=== PATIENT | female | born 1985 | race Caucasian/White ===

== ENCOUNTER 2016-06-07 | Outpatient (CLI) | payer BC | END 2016-06-07 11:18 | disposition home or self-care (01) | CPT/HCPCS: 59025; 99213 ==

== ENCOUNTER 2016-06-14 20:34 | Observation (INO) | payer BC ==
[2016-06-14] MEDS ORDERED: MORPHINE SULFATE 10 MG/ML SYRINGE IVP STA (21:20)
[2016-06-14] MEDS ORDERED: MORPHINE SULFATE 10 MG/ML SYRINGE IM STA (21:20)
[2016-06-14] MEDS: LACTATED RINGERS 1,000 ML IV SCH (22:08)
[2016-06-14 22:52] VITALS: BP 130/75; PULSE 82; RESP 16; BMI 29.2
[2016-06-15] MEDS ORDERED: diphenhydrAMINE 50 MG/ML 1 ML VIAL IVP STA (02:04)
--- NOTE | 2016-06-15 02:09 | P.HPOB ---
History of Present Illness H&P Date: 06/15/16 Chief Complaint: Uterine contractions 31-year-old presents at 36 weeks and 4 days complaining of contractions. She's been aleida for several days and has had very little sleep the last several days. heart tones are 140-145 with moderate variability and reactive. She is aleida about every 7 minutes. She is not making cervical change and she will not be induced at this stage in her but I will give her some pain medication to get some rest overnight. Review of Systems All systems: negative Constitutional: Denies chills, Denies fever Eyes: denies blurred vision, denies pain Ears, nose, mouth and throat: Denies headache, Denies sore throat Cardiovascular: Denies chest pain, Denies shortness of breath Respiratory: Denies cough Gastrointestinal: Denies abdominal pain, Denies diarrhea, Denies nausea, Denies vomiting Genitourinary: Denies dysuria, Denies hematuria Musculoskeletal: Denies myalgias Integumentary: Denies pruritus, Denies rash Neurological: Denies numbness, Denies weakness Psychiatric: Denies anxiety, Denies depression Endocrine: Denies fatigue, Denies weight change Past Medical History Past Medical History: No Reported History History of Any Multi-Drug Resistant Organisms: None Reported Past Surgical History: No Surgical Hx Reported Additional Past Surgical History / Comment(s): wisdom teeth Past Anesthesia/Blood Transfusion Reactions: No Reported Reaction Past Psychological History: No Psychological Hx Reported Smoking Status: Never smoker Past Alcohol Use History: None Reported Past Drug Use History: None Reported - Past Family History Father Family Medical History: No Reported History Medications and Allergies Home Medications Medication Instructions Recorded Confirmed Type Pnv#67/Iron Ps/FA Cmb#1/Dha 1 cap PO HS 11/20/15 06/14/16 History [Vitafol Ultra Softgel] Allergies Allergy/AdvReac Type Severity Reaction Status Date / Time Sulfa (Sulfonamide Allergy Anaphylaxis Verified 06/11/16 18:20 Antibiotics) promethazine HCl AdvReac Unknown Verified 06/14/16 20:51 [From Phenergan] Exam Osteopathic Statement: *. No significant issues noted on an osteopathic structural exam other than those noted in the History and Physical/Consult. - Vital Signs Vital signs: Vital Signs Pulse Resp BP Pulse Ox 06/14/16 21:58 82 16 130/75 97 Intake and Output 06/14/16 06/14/16 06/15/16 14:59 22:59 06:59 Other: # Voids 2 Weight 82.1 kg Patient Weight 06/15/16 06:59 Weight 82.1 kg Heart: Regular rate and rhythm Lungs: Clear to auscultation bilaterally Abdomen: Soft, nontender Extremities: Negative Homans sign Assessment and Plan (1) Uterine contractions during Status: Acute Plan: 1. NST 2. Morphine rest 3. She doesn't make any cervical change she'll be discharged home in the morning
[2016-06-15] MEDS: LACTATED RINGERS 1,000 ML IV SCH (02:19)
== END 2016-06-15 11:05 | disposition home or self-care (01) ==
LOC: FBPOP 20:34 → 4FBP 21:15
PROVIDERS: ADMIT Obstetrics & Gynecology; ATTEND Obstetrics & Gynecology
DX: O60.03 Preterm labor without delivery, third trimester (principal); Z3A.36 36 weeks gestation of pregnancy; Z88.2 Allergy status to sulfonamides
CPT/HCPCS: 59025; 99213; G0378 ×2; J1200; J2270; 96374; 96375

== ENCOUNTER 2016-06-28 19:28 | Inpatient (IN) | payer BC, OTHER ==
[2016-06-28] MEDS ORDERED: TERBUTALINE 1 MG/ML VIAL SQ PRN (20:07)
[2016-06-28] MEDS ORDERED: OXYTOCIN 10 UNIT/ML 1 ML VIAL IM PRN (20:07)
[2016-06-28] MEDS ORDERED: CARBOPROST TROMETHAMINE 250 MCG/ML 1 ML AMP IM PRN (20:07)
[2016-06-28] MEDS ORDERED: METHYLERGONOVINE 0.2 MG/ML 1 ML AMP IM PRN (20:07)
[2016-06-28] MEDS ORDERED: LIDOCAINE 1% (PF) 10 MG/ML (30 ML SDV) SQ PRN (20:07)
[2016-06-28] MEDS: LACTATED RINGERS 1,000 ML IV SCH ×2 (20:17→21:26)
[2016-06-28 20:21] LABS: Basophils % (A) 0 %; CH 30.3; CHCM 34.2; Eosinophils # (A) 0.1 k/uL (0-0.7); Eosinophils % (A) 1 %; HCT 39.4 % (34.0-46.0); HDW 3.13; Luc # (Auto) 0.26; Luc % (Auto) 3; Lymphocytes # (A) 1.3 k/uL (1.0-4.8); Lymphocytes % (A) 14 %; MCH 29.2 pg (25.0-35.0); MCHC 32.9 g/dL (31.0-37.0); Mean Platelet Volume 8.3; Monocytes # (A) 0.6 k/uL (0-1.0); Monocytes % (A) 7 %; Neutrophils # (A) 6.8 k/uL (1.3-7.7); Neutrophils % (A) 75 %; RBC 4.43 m/uL (3.80-5.40); RDW 14.2 % (11.5-15.5); WBC 9.1 k/uL (3.8-10.6); WBC (Perox) 9.77
--- NOTE | 2016-06-28 20:32 | P.HPOB ---
History of Present Illness H&P Date: 06/28/16 Chief Complaint: Labor 31 year old presents at 38 weeks 5 days in labor. She is aleida every 3 minutes and her cervix is 4-5/80/-2. heart tones 140-145 with moderate variability and reactive. Review of Systems All systems: negative Constitutional: Denies chills, Denies fever Eyes: denies blurred vision, denies pain Ears, nose, mouth and throat: Denies headache, Denies sore throat Cardiovascular: Denies chest pain, Denies shortness of breath Respiratory: Denies cough Gastrointestinal: Denies abdominal pain, Denies diarrhea, Denies nausea, Denies vomiting Genitourinary: Denies dysuria, Denies hematuria Musculoskeletal: Denies myalgias Integumentary: Denies pruritus, Denies rash Neurological: Denies numbness, Denies weakness Psychiatric: Denies anxiety, Denies depression Endocrine: Denies fatigue, Denies weight change Past Medical History Past Medical History: No Reported History Additional Past Medical History / Comment(s): OB history: she has had 2 previous vaginal deliveries and this is her third . She has had care with al since the first trimester. O+, abs neg, Rub Imm, RPR Nr, Hep B neg, HIV NR. History of Any Multi-Drug Resistant Organisms: None Reported Past Surgical History: No Surgical Hx Reported Additional Past Surgical History / Comment(s): wisdom teeth Past Anesthesia/Blood Transfusion Reactions: No Reported Reaction Past Psychological History: No Psychological Hx Reported Smoking Status: Never smoker Past Alcohol Use History: None Reported Past Drug Use History: None Reported - Past Family History Father Family Medical History: No Reported History Medications and Allergies Home Medications Medication Instructions Recorded Confirmed Type Pnv#67/Iron Ps/FA Cmb#1/Dha 1 cap PO HS 11/20/15 06/28/16 History [Vitafol Ultra Softgel] Allergies Allergy/AdvReac Type Severity Reaction Status Date / Time morphine Allergy Itching Verified 06/28/16 20:06 Sulfa (Sulfonamide Allergy Anaphylaxis Verified 06/28/16 20:06 Antibiotics) promethazine HCl AdvReac Unknown Verified 06/28/16 20:06 [From Phenergan] Exam Osteopathic Statement: *. No significant issues noted on an osteopathic structural exam other than those noted in the History and Physical/Consult. - Vital Signs Vital signs: Intake and Output 06/28/16 06/28/16 06/28/16 06:59 14:59 22:59 Other: Weight 81.647 kg Patient Weight 06/29/16 06:59 Weight 81.647 kg Heart: Regular rate and rhythm Lungs: Clear to auscultation bilaterally Abdomen: Soft, nontender Extremities: Negative Homans sign Results Result Diagrams: 06/28/16 20:10 Assessment and Plan (1) Normal labor Status: Acute Plan: 1. Admit to family place 2. Expectant management 3. Anticipate normal vaginal delivery
[2016-06-28] MEDS ORDERED: SODIUM CHLORIDE 0.9% 100 ML BAG ONE (20:53)
[2016-06-28] MEDS ORDERED: fentaNYL (PF) 50 MCG/ML 5 ML AMP ONE (20:53)
[2016-06-28] MEDS ORDERED: BUPIVACAINE (PF) 0.25% 30 ML VIAL ONE (20:53)
[2016-06-28 21:18] VITALS: BMI 29.0
[2016-06-28] MEDS ORDERED: diphenhydrAMINE 25 MG CAP PO PRN (23:33)
[2016-06-28] MEDS ORDERED: HYDROCORTISONE 2.5% RECTAL CREAM 30 GM TUBE RECTAL PRN (23:33)
[2016-06-28] MEDS ORDERED: ZOLPIDEM 5 MG TAB PO PRN (23:33)
[2016-06-28] MEDS ORDERED: LANOLIN CREAM 5 GM TUBE TOPICAL PRN (23:33)
[2016-06-28] MEDS ORDERED: SIMETHICONE 80 MG CHEWABLE PO PRN (23:33)
[2016-06-28] MEDS ORDERED: WITCH HAZEL 1 EACH MED..PAD TOPICAL PRN (23:33)
[2016-06-28] MEDS ORDERED: BENZOCAINE/MENTHOL SPRAY 1 GM/SPRAY AEROSOL TOPICAL PRN (23:33)
[2016-06-28] MEDS ORDERED: Acetaminophen-Codeine 300-30mg TAB PO PRN ×2 (23:33)
[2016-06-28] MEDS ORDERED: ACETAMINOPHEN TAB 325 MG TAB PO PRN (23:33)
[2016-06-28] MEDS ORDERED: diphenhydrAMINE 50 MG/ML 1 ML VIAL IVP PRN ×2 (23:33)
[2016-06-28] MEDS ORDERED: diphenhydrAMINE 50 MG CAP PO PRN (23:33)
--- NOTE | 2016-06-28 23:37 | P.PROBDLV ---
Vaginal Delivery Note - . Vaginal Delivery Note: 31-year-old presents at 38 weeks and 5 days and labor. Her cervix is 4-5 cm dilated, 70% effaced, -2 station. She is aleida every 3-4 minutes. heart tones 140-145 with moderate variability and reactive. Amniotomy was performed at 2022 and clear fluid noted. She did get an epidural for pain control. Her cervix was completely dilated at 2317 she pushed and delivered a viable female infant over intact perineum under epidural anesthesia at 2323. Head delivered OA, nuchal cord 1 easily reduced, anterior shoulder which was the left shoulder, delivered gentle downward traction followed by posterior shoulder and rest of body. Nose mouth bulb suctioned, cord clamped and cut, infant placed on mother's abdomen. Apgars 8, 9, weight pending. Placenta delivered spontaneously intact with three-vessel cord at 2326. Vagina, cervix, perineum were inspected. First-degree midline laceration was repaired with 3-0 Vicryl. Estimated blood loss 150 mL. Mother and baby in stable condition.
[2016-06-28] MEDS: OXYTOCIN 30 UNITS/500 ML NS 30 UNIT in SALINE 1 500ML.BAG IV SCH (23:41)
[2016-06-29] MEDS: IBUPROFEN 600 MG TAB PO PRN ×3 (00:04→15:01)
[2016-06-29] MEDS: OXYTOCIN 30 UNITS/500 ML NS 30 UNIT in SALINE 1 500ML.BAG IV SCH (04:21)
[2016-06-29] MEDS: DOCUSATE 100 MG CAP PO SCH (09:47)
[2016-06-30] MEDS: IBUPROFEN 600 MG TAB PO PRN ×2 (00:05→07:51)
[2016-06-30] MEDS: DOCUSATE 100 MG CAP PO SCH (07:52)
[2016-06-30 08:44] VITALS: BP 130/78; PULSE 85; RESP 20; TEMP 97
--- NOTE | 2016-06-30 08:48 | P.PNOBGVD ---
Subjective - Subjective Principal diagnosis: S/P NVD PPD #1 Interval history: Patient seen and examined. Denies nausea, vomiting, chest pain, shortness of breath or calf pain. Patient reports: Reports appetite normal, Reports voiding normally, Reports pain well controlled, Reports ambulating normally : doing well Objective - Latest Vital Signs Latest vital signs: Vital Signs Temp Pulse Resp BP 06/30/16 08:00 97.0 F L 85 20 130/78 06/30/16 00:00 96.8 F L 90 12 117/65 06/29/16 16:00 97.8 F 94 14 121/74 Intake and Output 06/29/16 06/30/16 06/30/16 22:59 06:59 14:59 Other: Voiding Method Toilet - Exam Lungs: bilateral: normal Chest: Normal S1, Normal S2 Extremities: Present: normal Abdomen: Present: normal appearance, soft Uterus: Present: normal, firm Assessment and Plan (1) Normal labor Narrative/Plan: 1. Continue normal care Current Visit: Yes Status: Resolved Code(s): O80 - ENCOUNTER FOR FULL-TERM UNCOMPLICATED DELIVERY; Z37.9 - OUTCOME OF DELIVERY, UNSPECIFIED SNOMED Code(s ): 82020384
--- NOTE | 2016-06-30 08:49 | P.DS ---
Providers Date of admission: 06/28/16 19:57 Expected date of discharge: 06/30/16 Attending physician: Olive Jara Primary care physician: Stated None - Discharge Diagnosis(es) (1) Normal labor Current Visit: Yes Status: Resolved Hospital Course: Patient presented in labor. She underwent normal vaginal delivery. Her course and 8. She'll be discharged home day #2 in stable condition to follow-up with me in 6 weeks. Plan - Discharge Summary New Discharge Prescriptions: Acetaminophen-Codeine 300-30mg [Tylenol w/codeine #3] 2 each PO Q4HR PRN #30 tab PRN Reason: Moderate To Severe Pain Ibuprofen [Motrin] 600 mg PO Q6HR PRN #30 tab PRN Reason: Mild Pain Or Fever >= 100.5 Discharge Medication List Pnv#67/Iron Ps/FA Cmb#1/Dha [Vitafol Ultra Softgel] 1 cap PO HS 11/20/15 [ History] Acetaminophen-Codeine 300-30mg [Tylenol w/codeine #3] 2 each PO Q4HR PRN #30 tab 06/30/16 [Rx] Ibuprofen [Motrin] 600 mg PO Q6HR PRN #30 tab 06/30/16 [Rx] Follow up Appointment(s)/Referral(s): Olive Jara DO [Doctor of Osteopathic Medicine] - 6 Weeks
== END 2016-06-30 11:20 | disposition home or self-care (01) | DRG 775 ==
LOC: FBPOP 19:28 → 4FBP 19:57
PROVIDERS: ADMIT Obstetrics & Gynecology; ATTEND Obstetrics & Gynecology
PROC: 10E0XZZ Delivery of Products of Conception, External Approach (ICD-10-PCS; principal; 2016-06-28)
PROC: 0HQ9XZZ Repair Perineum Skin, External Approach (ICD-10-PCS; 2016-06-28)
PROC: 10907ZC Drainage of Amniotic Fluid, Therapeutic from Products of Conception, Via Natural or Artificial Opening (ICD-10-PCS; 2016-06-28)
PROC: 00HU33Z Insertion of Infusion Device into Spinal Canal, Percutaneous Approach (ICD-10-PCS; 2016-06-28)
DX: O69.81X0 Labor and delivery complicated by cord around neck, without compression, not applicable or unspecified (principal); O70.0 First degree perineal laceration during delivery; Z37.0 Single live birth; Z3A.38 38 weeks gestation of pregnancy; Z88.5 Allergy status to narcotic agent; Z88.2 Allergy status to sulfonamides; Z88.8 Allergy status to other drugs, medicaments and biological substances
CPT/HCPCS: 85025; 88307

== ENCOUNTER 2016-12-15 14:37 | Emergency (ER) | payer BC ==
[2016-12-15] MEDS ORDERED: SODIUM CHLORIDE 0.9% 500 ML IV STA (15:14)
--- NOTE | 2016-12-15 15:20 | ED ---
Abdominal Pain HPI - General Chief Complaint: Abdominal Pain Stated Complaint: abdominal pain Time Seen by Provider: 12/15/16 15:08 Source: patient, RN notes reviewed Mode of arrival: ambulatory Limitations: no limitations - History of Present Illness Initial Comments: This a 31-year-old female presents emergency Department chief complaint lower abdominal pain starting last 24 hours. She states that she felt some urgency to urinate no real dysuria. Patient went to [facility] earlier today they told her urine was fine. She states that she felt maybe she said some gas discomfort. She went home attempt blood work and pain worsen. She was advised to come emergency Department for evaluation. Patient states she had vaginal delivery 6 months ago and states that her had a vasectomy and should not be a chance at this time though she has not had a period in 2 years. Patient denies any fever, chills, back pain or any flank pain. She states on Tuesday she did have some nausea vomiting diarrhea that all resolved. Patient states she did take some Tylenol prior arrival in relief of her symptoms that she is currently breast-feeding does not want any medications. - Related Data Home Medications Medication Instructions Recorded Confirmed Pnv 67/Iron Ps/Folate No.1/Dha 1 cap PO HS 11/20/15 12/15/16 [Vitafol Ultra Softgel] Acetaminophen Tab [Tylenol Tab] 1,000 mg PO Q6HR PRN 12/15/16 12/15/16 Previous Rx's Medication Instructions Recorded Cephalexin [Keflex] 500 mg PO Q6HR #20 cap 12/15/16 Allergies Allergy/AdvReac Type Severity Reaction Status Date / Time morphine Allergy Itching Verified 12/15/16 15:33 Sulfa (Sulfonamide Allergy Anaphylaxis Verified 12/15/16 15:33 Antibiotics) promethazine HCl AdvReac Unknown Verified 12/15/16 15:33 [From Phenergan] Review of Systems ROS Statement: Those systems with pertinent positive or pertinent negative responses have been documented in the HPI. ROS Other: All systems not noted in ROS Statement are negative. Past Medical History Past Medical History: No Reported History Additional Past Medical History / Comment(s): OB history: she has had 2 previous vaginal deliveries and this is her third . She has had care with me since the first trimester. O+, abs neg, Rub Imm, RPR Nr, Hep B neg, HIV NR. History of Any Multi-Drug Resistant Organisms: None Reported Past Surgical History: No Surgical Hx Reported Additional Past Surgical History / Comment(s): wisdom teeth Past Anesthesia/Blood Transfusion Reactions: No Reported Reaction Past Psychological History: No Psychological Hx Reported Smoking Status: Never smoker Past Alcohol Use History: None Reported Past Drug Use History: None Reported - Past Family History Father Family Medical History: No Reported History General Exam Limitations: no limitations General appearance: alert, in no apparent distress Head exam: Present: atraumatic, normocephalic, normal inspection Respiratory exam: Present: normal lung sounds bilaterally. Absent: respiratory distress, wheezes, rales, rhonchi, stridor Cardiovascular Exam: Present: regular rate, normal rhythm, normal heart sounds. Absent: systolic murmur, diastolic murmur, rubs, gallop, clicks GI/Abdominal exam: Present: soft, tenderness (Mild to monitor lower abdominal diffuse), normal bowel sounds. Absent: distended, guarding, rebound, rigid Back exam: Absent: CVA tenderness (R), CVA tenderness (L) Skin exam: Present: warm, dry, intact, normal color. Absent: rash Course Vital Signs 12/15/16 12/15/16 14:49 16:38 Temperature 98.1 F 97.8 F Pulse Rate 81 71 Respiratory 18 16 Rate Blood Pressure 116/69 114/71 O2 Sat by Pulse 100 98 Oximetry Medical Decision Making - Medical Decision Making 31-year-old female presented emergency department for lower abdominal pain. Patient does have 17 white cells in her urine. There is few squamous cells so she patient is symptomatic will be treated for UTI. Patient does have moderate amount of free fluid in cul-de-sac cycle related to ovarian cyst rupture. Patient will be discharged return parameters were discussed. - Lab Data Result diagrams: 12/15/16 15:46 12/15/16 15:46 Lab Results 12/15/16 12/15/16 12/15/16 Range/Units 15:46 15:46 15:46 WBC 7.1 (3.8-10.6) k/uL RBC 4.42 (3.80-5.40) m/uL Hgb 13.5 (11.4-16.0) gm/dL Hct 38.8 (34.0-46.0) % MCV 87.9 (80.0-100.0) fL MCH 30.5 (25.0-35.0) pg MCHC 34.7 (31.0-37.0) g/dL RDW 13.0 (11.5-15.5) % Plt Count 207 (150-450) k/uL Neutrophils % 56 % Lymphocytes % 34 % Monocytes % 7 % Eosinophils % 1 % Basophils % 1 % Neutrophils # 3.9 (1.3-7.7) k/uL Lymphocytes # 2.4 (1.0-4.8) k/uL Monocytes # 0.5 (0-1.0) k/uL Eosinophils # 0.1 (0-0.7) k/uL Basophils # 0.0 (0-0.2) k/uL Sodium 141 (137-145) mmol/L Potassium 5.1 (3.5-5.1) mmol/L Chloride 103 (98-107) mmol/L Carbon Dioxide 26 (22-30) mmol/L Anion Gap 12 mmol/L BUN 12 (7-17) mg/dL Creatinine 0.76 (0.52-1.04) mg/dL Est GFR (MDRD) Af Amer >60 (>60 ml/min/1.73 sqM) Est GFR (MDRD) Non-Af >60 (>60 ml/min/1.73 sqM) Glucose 86 (74-99) mg/dL Calcium 9.4 (8.4-10.2) mg/dL Total Bilirubin 0.6 (0.2-1.3) mg/dL AST 22 (14-36) U/L ALT 27 (9-52) U/L Alkaline Phosphatase 101 (38-126) U/L Total Protein 7.2 (6.3-8.2) g/dL Albumin 4.3 (3.5-5.0) g/dL Amylase 70 (30-110) U/L Lipase 136 (23-300) U/L Urine Color Yellow Urine Appearance Clear (Clear) Urine pH 5.5 (5.0-8.0) Ur Specific [place] 1.024 (1.001-1.035) Urine Protein Negative (Negative) Urine Glucose (UA) Negative (Negative) Urine Ketones Negative (Negative) Urine Blood Negative (Negative) Urine Nitrite Negative (Negative) Urine Bilirubin Negative (Negative) Urine Urobilinogen <2.0 (<2.0) mg/dL Ur Leukocyte Esterase Small H (Negative) Urine RBC 2 (0-5) /hpf Urine WBC 17 H (0-5) /hpf Ur Squamous Epith Cells 9 H (0-4) /hpf Amorphous Sediment Rare H (None) /hpf Urine Bacteria Occasional H (None) /hpf Urine Mucus Few H (None) /hpf Disposition Clinical Impression: UTI (urinary tract infection), Ruptured ovarian cyst Disposition: HOME SELF-CARE Condition: Stable Instructions: Urinary Tract Infection in Women (ED) Additional Instructions: Please return to the Emergency Department if symptoms worsen or any other concerns. Prescriptions: Cephalexin [Keflex] 500 mg PO Q6HR #20 cap Referrals: Mary Irwin MD [Primary Care Provider] - 1-2 days Time of Disposition: 17:02
[2016-12-15 16:13] LABS: Basophils % (A) 1 %; CH 31.1; CHCM 35.6; Eosinophils # (A) 0.1 k/uL (0-0.7); Eosinophils % (A) 1 %; HCT 38.8 % (34.0-46.0); HDW 2.83; HGB 13.5 gm/dL (11.4-16.0); Luc # (Auto) 0.13; Luc % (Auto) 2; Lymphocytes # (A) 2.4 k/uL (1.0-4.8); Lymphocytes % (A) 34 %; MCH 30.5 pg (25.0-35.0); MCHC 34.7 g/dL (31.0-37.0); MCV 87.9 fL (80.0-100.0); Mean Platelet Volume 9.1; Monocytes # (A) 0.5 k/uL (0-1.0); Monocytes % (A) 7 %; Neutrophils # (A) 3.9 k/uL (1.3-7.7); Neutrophils % (A) 56 %; RBC 4.42 m/uL (3.80-5.40); WBC 7.1 k/uL (3.8-10.6); WBC (Perox) 7.62
[2016-12-15 16:26] LABS: Amorphous Sediment,Urine Rare /hpf; Appearance,Urine Clear (Clear); Bacteria,Urine Occasional /hpf; Bilirubin,Urine Negative (Negative); Glucose,Urine (UA) Negative (Negative); Ketones,Urine Negative (Negative); Leukocyte Esterase,Urine Small (Negative); Mucus,Urine Few /hpf; Nitrite,Urine Negative (Negative); PH, Urine 5.5 (5.0-8.0); Particle Count 8978; Protein,Urine Negative (Negative); RBC,Urine 2 /hpf (0-5); Specific Gravity,Urine 1.024 (1.001-1.035); Squamous Epithelial Cell,Urine 9 /hpf (0-4); UA Billing (MACRO vs. MICRO) MICRO; Urobilinogen,Urine <2.0 mg/dL (<2.0); WBC,Urine 17 /hpf (0-5)
[2016-12-15 16:28] LABS: AST 22 U/L (14-36); Alkaline Phosphatase 101 U/L (38-126); Amylase 70 U/L (30-110); Blood Urea Nitrogen 12 mg/dL (7-17); Calcium 9.4 mg/dL (8.4-10.2); Chloride 103 mmol/L (98-107); Glucose 86 mg/dL (74-99); Non-African American GFR(MDRD) >60 (>60 ml/min/1.73 sqM); Potassium 5.1 mmol/L (3.5-5.1); Sodium 141 mmol/L (137-145); Total Bilirubin 0.6 mg/dL (0.2-1.3); Total Protein 7.2 g/dL (6.3-8.2)
[2016-12-15 16:33] LABS: ALT 27 U/L (9-52); Anion Gap 12 mmol/L; Carbon Dioxide 26 mmol/L (22-30)
--- NOTE | 2016-12-15 16:37 | US ---
EXAMINATION TYPE: US transvaginal DATE OF EXAM: 12/15/2016 COMPARISON: NONE CLINICAL HISTORY: Pain. TECHNIQUE: Transvaginal (TV) and Transabdominal (TA) Date of LMP: Patient 6 months post , , unknown LMP EXAM MEASUREMENTS: Uterus: 6.7 x 3.0 x 4.4 cm Endometrial Stripe: 0.2 cm Right Ovary: 1.9 x 1.5 x 1.2 cm Left Ovary: 2.0 x 1.8 x 1.6 cm 1. Uterus: Anteverted wnl 2. Endometrium: wnl 3. Right Ovary: wnl 4. Left Ovary: wnl Spectral, color and waveform doppler imaging shows good arterial and venous flow within the ovaries ; there is no evidence for ovarian torsion. 5. Bilateral Adnexa: wnl 6. Posterior cul-de-sac: area of free fluid measuring 55. x 3.3 x 4.0 There is moderate free fluid within the cul-de-sac. IMPRESSION: MODERATE FREE FLUID WITHOUT OTHER DEFINITE ABNORMALITY.
[2016-12-15 16:40] VITALS: BP 114/71; PULSE 71; RESP 16; TEMP 97.8
== END 2016-12-15 17:16 | disposition home or self-care (01) ==
LOC: EC 14:37
DX: N39.0 Urinary tract infection, site not specified (principal); N83.209 Unspecified ovarian cyst, unspecified side; Z79.899 Other long term (current) drug therapy; Z88.5 Allergy status to narcotic agent; Z88.2 Allergy status to sulfonamides; Z88.8 Allergy status to other drugs, medicaments and biological substances
CPT/HCPCS: 36415; 76830; 80053; 81001; 82150; 83690; 85025; 99284

== ENCOUNTER → 2016-12-23 | Outpatient (CLI) | payer BC ==
[2016-12-23 09:38] LABS: Basophils % (A) 0 %; CH 30.3; CHCM 34.8; Eosinophils # (A) 0.1 k/uL (0-0.7); Eosinophils % (A) 2 %; HCT 42.3 % (34.0-46.0); HDW 2.95; HGB 14.7 gm/dL (11.4-16.0); Luc # (Auto) 0.11; Luc % (Auto) 2; Lymphocytes # (A) 2.1 k/uL (1.0-4.8); Lymphocytes % (A) 31 %; MCH 30.3 pg (25.0-35.0); MCHC 34.7 g/dL (31.0-37.0); MCV 87.5 fL (80.0-100.0); Monocytes # (A) 0.3 k/uL (0-1.0); Monocytes % (A) 4 %; Neutrophils % (A) 61 %; RBC 4.84 m/uL (3.80-5.40); RDW 12.2 % (11.5-15.5); WBC 6.6 k/uL (3.8-10.6)
[2016-12-23 09:54] LABS: ALT 30 U/L (9-52); AST 21 U/L (14-36); Alkaline Phosphatase 117 U/L (38-126); Anion Gap 12 mmol/L; Blood Urea Nitrogen 15 mg/dL (7-17); Calcium 9.8 mg/dL (8.4-10.2); Carbon Dioxide 27 mmol/L (22-30); Chloride 105 mmol/L (98-107); Cholesterol 159 mg/dL (<200); Glucose 86 mg/dL (74-99); HDL Cholesterol 56 mg/dL (40-60); Non-African American GFR(MDRD) >60 (>60 ml/min/1.73 sqM); Potassium 4.4 mmol/L (3.5-5.1); Sodium 144 mmol/L (137-145); Total Bilirubin 0.7 mg/dL (0.2-1.3); Total Protein 7.9 g/dL (6.3-8.2); Triglycerides 90 mg/dL (<150)
== END | disposition home or self-care (01) ==
LOC: LABWHC1 09:01
PROVIDERS: ATTEND Family Medicine
DX: Z00.00 Encounter for general adult medical examination without abnormal findings (principal)
CPT/HCPCS: 36415; 80053; 80061; 84443; 85025

== ENCOUNTER 2019-08-16 16:06 | Emergency (ER) | payer BC ==
[2019-08-16 16:10] VITALS: BP 137/90; PULSE 88; RESP 18; TEMP 98.7
--- NOTE | 2019-08-16 17:19 | XR ---
EXAMINATION TYPE: XR chest 2V DATE OF EXAM: 08/16/2019 COMPARISON: 01/10/2016 HISTORY: Chest tightness TECHNIQUE: 2 views FINDINGS: Heart and mediastinum are normal. Lungs are clear. Diaphragm is normal. Bony thorax appears normal. IMPRESSION: Normal chest. No change.
--- NOTE | 2019-08-16 17:27 | ED ---
General Adult HPI - General Chief complaint: Upper Respiratory Infection Stated complaint: Fever,cough, SOB Time Seen by Provider: 08/16/19 16:27 Source: patient Mode of arrival: ambulatory Limitations: no limitations - History of Present Illness Initial comments: Patient is a 34-year-old female presenting to emergency Department with chief complaint of cough. Patient states she developed symptoms about 4 days ago with a productive cough. Patient does report occasional sore throat after coughing fits. Denies any rhinorrhea or otalgia. States she does have shortness of breath and dyspnea on exertion. Patient states she has chest tightness but not necessarily pain especially after coughing fits. Patient states she has general body aches with one episode of diarrhea today. Does report chills but denies any fevers. Denies any nausea or vomiting abdominal pain or back pain. Patient denies history of asthma or smoking. Denies hypertension, dyslipidemia, early cardiac related . No previous cardiac history. Patient does report taking [id number] analgesics with some improvement of symptoms. Denies any recent travels or direct exposure to any known Covid patient. - Related Data Home Medications Medication Instructions Recorded Confirmed Pnv 67/Iron Ps/Folate No.1/Dha 1 cap PO HS 11/20/15 12/15/16 [Vitafol Ultra Softgel] Acetaminophen Tab [Tylenol Tab] 1,000 mg PO Q6HR PRN 12/15/16 12/15/16 Previous Rx's Medication Instructions Recorded Cephalexin [Keflex] 500 mg PO Q6HR #20 cap 12/15/16 Albuterol Inhaler [Ventolin Hfa 1 - 2 puff INHALATION RT-Q6H PRN 08/16/19 Inhaler] #1 inhaler Allergies Allergy/AdvReac Type Severity Reaction Status Date / Time morphine Allergy Itching Verified 08/16/19 16:11 Penicillins Allergy Rash/Hives Verified 08/16/19 16:11 Sulfa (Sulfonamide Allergy Anaphylaxis Verified 08/16/19 16:11 Antibiotics) promethazine HCl AdvReac Unknown Verified 08/16/19 16:11 [From Phenergan] Review of Systems ROS Statement: Those systems with pertinent positive or pertinent negative responses have been documented in the HPI. ROS Other: All systems not noted in ROS Statement are negative. Past Medical History Past Medical History: No Reported History Additional Past Medical History / Comment(s): OB history: she has had 2 previous vaginal deliveries and this is her third . She has had care with me since the first trimester. O+, abs neg, Rub Imm, RPR Nr, Hep B neg, HIV NR. History of Any Multi-Drug Resistant Organisms: None Reported Past Surgical History: No Surgical Hx Reported Additional Past Surgical History / Comment(s): wisdom teeth Past Anesthesia/Blood Transfusion Reactions: No Reported Reaction Past Psychological History: No Psychological Hx Reported Smoking Status: Never smoker Past Alcohol Use History: None Reported Past Drug Use History: None Reported - Past Family History Father Family Medical History: No Reported History General Exam Limitations: no limitations General appearance: alert, in no apparent distress Head exam: Present: atraumatic, normocephalic, normal inspection Eye exam: Present: normal appearance, PERRL, EOMI Pupils: Present: normal accommodation ENT exam: Present: normal exam, normal oropharynx, mucous membranes moist, TM's normal bilaterally, normal external ear exam Neck exam: Present: normal inspection, full ROM Respiratory exam: Present: normal lung sounds bilaterally, chest wall tenderness (Reproducible midsternal chest tenderness). Absent: respiratory distress, wheezes Cardiovascular Exam: Present: regular rate, normal rhythm, normal heart sounds Extremities exam: Present: normal inspection, full ROM Back exam: Present: normal inspection, full ROM Neurological exam: Present: alert, oriented X3 Psychiatric exam: Present: normal affect, normal mood Skin exam: Present: warm, dry, intact, normal color Course Vital Signs 08/16/19 08/16/19 16:07 17:50 Temperature 98.7 F Pulse Rate 88 Respiratory 18 18 Rate Blood Pressure 137/90 O2 Sat by Pulse 98 Oximetry EKG Findings - EKG Comments: EKG Findings:: normal sinus rhythm, no ST changes. Ventricular rate 73, MI 1:30, QRS 82, QTC 419. Medical Decision Making - Medical Decision Making patient is a 4-year-old male presenting to emergency Department with chief complaint of cough and shortness of breath. On examination patient is not in any respiratory distress. No abnormal respiratory sounds appreciated. Patient does have reproducible chest pain in the midsternal region with palpation. Chest x-ray is negative for acute processes. EKG shows normal sinus rhythm with no ST changes. Patient does appear to have body aches along with a cough but normal vitals in the ED. I suspect the patient has influenza, however patient is currently out of the 48 hour range from onset of symptoms in order to prescribe Tamiflu treatment. Patient advised to continue between Tylenol and Mo darryl. She was advised to use an albuterol inhaler as needed for shortness of breath. Return parameters were thoroughly discussed with patient is understanding and agreeable. Case discussed with physician. Disposition Clinical Impression: Cough, Acute bronchitis Disposition: HOME SELF-CARE Condition: Stable Instructions (If sedation given, give patient instructions): Influenza (DC), Acute Bronchitis (ED) Additional Instructions: Continue alternating between Tylenol and Motrin. Make sure to drink lots of fluids. Return to emergency department if symptoms worsen. Prescriptions: Albuterol Inhaler [Ventolin Hfa Inhaler] 1 - 2 puff INHALATION RT-Q6H PRN #1 inhaler PRN Reason: Shortness Of Breath Is patient prescribed a controlled substance at d/c from ED?: No Referrals: Mary Irwin MD [Primary Care Provider] - 1-2 days Time of Disposition: 17:54
== END 2019-08-16 18:10 | disposition home or self-care (01) ==
LOC: EC 16:06
DX: J20.9 Acute bronchitis, unspecified (principal); Z88.0 Allergy status to penicillin; Z88.2 Allergy status to sulfonamides; Z88.5 Allergy status to narcotic agent; Z88.8 Allergy status to other drugs, medicaments and biological substances; R19.7 Diarrhea, unspecified
CPT/HCPCS: 71046; 93005; 99285

== ENCOUNTER → 2020-07-14 | Outpatient (CLI) | payer BC ==
--- NOTE | 2020-07-14 14:37 | MM ---
Reason for exam: screening (asymptomatic). Baseline mammogram. History: Family history of breast cancer in maternal cousin at age 27 and breast cancer in maternal aunt at age 45. Taking hormonal contraceptives beginning at age 15. Physical Findings: Nurse did not find any significant physical abnormalities on exam. MG 3D Screening Mammo W/Cad Bilateral CC and MLO view(s) were taken. The breast tissue is extremely dense which could obscure a lesion on mammography. Finding: There are typically benign fine, diffuse/scattered calcifications in both breasts. There is no discrete abnormality. These results were verbally communicated with the patient and result sheet given to the patient on 07/14/20. ASSESSMENT: Benign, BI-RAD 2 RECOMMENDATION: Routine screening mammogram of both breasts at age 39.
--- NOTE | 2020-07-14 16:05 | BD ---
EXAMINATION TYPE: Axial Bone Density DATE OF EXAM: 07/14/2020 COMPARISON: NONE CLINICAL HISTORY: Height: 65.5 IN Weight: 160 LBS RISK FACTORS HISTORY OF: History of Wrist Fracture: YES LEFT When: AGE 21 Family History of Osteoporosis: YES GRANDMOTHER (M)(F) Active: YES Take estrogen and/or progesterone medications: YES How long: CONTROL OFF AND ON FOR 13 YEARS MEDICATIONS: Additional Medications: CALCIUM, VIT D, MULTI VIT, CONTROL, EXAM MEASUREMENTS: Bone mineral densitometry was performed using the [employer] System. Bone mineral density as measured about the Lumbar spine is: ----- L1-L4(G/cm2): 1.114 T Score Values are as follows: ----- L2: -0.6 ----- L3: -0.5 ----- L4: -0.7 ----- L1-L4: -0.5 Bone mineral density BASELINE Bone mineral density about the R hip (g/cm2): 0.871 Bone mineral density about the L hip (g/cm2): 0.894 T Score values are as follows: -----R Neck: -1.2 -----L Neck: -1.0 -----R Total: -1.1 -----L Total: -0.9 Bone mineral density BASELINE IMPRESSION: Osteopenia (T Score between -2.5 and -1). There is slightly increased risk of fracture and the patient may be considered for treatment. Re-Screen 2-5 years. NOTE: T-SCORE=SD OF THE YOUNG ADULT MEAN.
== END | disposition home or self-care (01) ==
LOC: RADMAMWWP 13:21
PROVIDERS: ATTEND Obstetrics & Gynecology
DX: Z12.31 Encounter for screening mammogram for malignant neoplasm of breast (principal); M85.80 Other specified disorders of bone density and structure, unspecified site
CPT/HCPCS: 77063; 77067; 77080

== ENCOUNTER → 2021-10-05 | Outpatient (CLI) | payer BC ==
--- NOTE | 2021-10-16 16:06 | EM ---
EVENT MONITOR DATE OF STUDY: 10/05/2021. INDICATION: Cardiac arrhythmia. The patient was monitored for 7 days. The baseline rhythm appeared to be sinus mechanism. The patient did have multiple episodes of paroxysmal atrial tachycardia noted. Otherwise there was no significant sinus pause or sinus arrest. No evidence of any advanced AV block seen. CONCLUSION: 1. This is a 7-day event monitor. 2. The baseline rhythm is sinus mechanism. 3. The patient did have multiple episodes of sinus tachycardia. 4. The patient did have multiple episodes of paroxysmal atrial tachycardia. MMODL / IJN: [id number] /
== END | disposition home or self-care (01) ==
LOC: RADECHMAIN 07:47
PROVIDERS: ATTEND Family Medicine
DX: I47.1 Supraventricular tachycardia (principal)
CPT/HCPCS: 93270

== ENCOUNTER → 2021-11-25 | Outpatient (CLI) | payer BC ==
--- NOTE | 2021-11-26 10:39 | CA ---
Transthoracic Echo Report Name: Leydi Bobby Age: 36 Gender: F : 1985 Exam Date: 11/25/2021 13:50 Exam Location: [facility] Ht (in): 66 Wt (lb): 165 Ordering Physician: He Haynes MD ([id number]) Attending/Referring Phys: Global Category Manager Alejandra Perez RDCS Procedure CPT: Indications: I47.9 tachycardia Cardiac Hx: Technical Quality: Good Contrast 1: Total Dose (mL): Contrast 2: Total Dose (mL): MEASUREMENTS (Male / Female) Normal Values 2D ECHO LV Diastolic Diameter PLAX 3.8 cm 4.2 - 5.9 / 3.9 - 5.3 cm LV Systolic Diameter PLAX 1.8 cm IVS Diastolic Thickness 1.1 cm 0.6 - 1.0 / 0.6 - 0.9 cm LVPW Diastolic Thickness 0.9 cm 0.6 - 1.0 / 0.6 - 0.9 cm LV Relative Wall Thickness 0.5 RV Internal Dim ED PLAX 2.6 cm LA Volume 25.7 cm??? 18 - 58 / 22 - 52 cm??? M-MODE Aortic Root Diameter MM 2.9 cm LA Systolic Diameter MM 2.1 cm LA Ao Ratio MM 0.7 MV E Point Septal Separation 0.4 cm AV Cusp Separation MM 1.6 cm DOPPLER AV Peak Velocity 154.0 cm/s AV Peak Gradient 9.5 mmHg MV Area PHT 5.7 cm??? MR Peak Velocity 158.6 cm/s MR Peak Gradient 10.1 mmHg Mitral E Point Velocity 75.6 cm/s Mitral A Point Velocity 48.1 cm/s Mitral E to A Ratio 1.6 MV Deceleration Time 134.1 ms MV E' Velocity 9.3 cm/s Mitral E to MV E' Ratio 8.2 TR Peak Velocity 161.5 cm/s TR Peak Gradient 10.4 mmHg Right Ventricular Systolic Press 14.7 mmHg FINDINGS Left Ventricle Mildly increased septal wall thickness. Left ventricular ejection fraction is estimated at 55-60 %. Left ventricular cavity size normal. Normal left ventricular diastolic filling pattern. Right Ventricle Mildly dilated right frontal Right Atrium The right atrium is normal in size. Left Atrium The left atrium is normal in size. Mitral Valve Structurally normal mitral valve without significant stenosis or prolapse. There is trace mitral regurgitation. Aortic Valve Structurally normal aortic valve without significant sclerosis or stenosis. There is no aortic regurgitation. Tricuspid Valve Structurally normal tricuspid valve without significant stenosis. Pulmonary artery systolic pressure is normal. Trace tricuspid regurgitation. Pulmonic Valve Structurally normal pulmonic valve without significant stenosis. There is no pulmonic regurgitation. Pericardium Normal pericardium without effusion. Aorta Normal aortic root dimension. CONCLUSIONS Normal left ventricular dimension and systolic function Mildly dilated right ventricle Normal intracardiac valves Previewed by: Dr. He Haynes MD (Electronically Signed) Final Date: 26 November 2021 10:38
== END | disposition home or self-care (01) ==
LOC: RADECHMAIN 13:48
PROVIDERS: ATTEND Internal Medicine Interventional Cardiology
DX: I08.1 Rheumatic disorders of both mitral and tricuspid valves (principal)
CPT/HCPCS: 93306

== ENCOUNTER → 2022-02-26 | Outpatient (CLI) | payer BC ==
--- NOTE | 2022-02-27 02:39 | MR ---
EXAMINATION TYPE: MR brain wo/w con DATE OF EXAM: 02/26/2022 COMPARISON: None HISTORY: Visual disturbances. CONTRAST: Standard multiplanar, multisequence MRI departmental protocol images were obtained without contrast a nd with 7.5 mL intravenous Gadavist gadolinium contrast. Ventricles have normal size. There is no mass effect or midline shift. No sign of intracranial hemorr srinivas. Diffusion images show no sign of an acute infarct. The alanis and white matter structures have fairly normal signal pattern. No evidence of cerebral edema . The brainstem is intact. Cerebellum is intact. Corpus callosum appears normal. Sella turcica is anita l. No evidence of orbital mass. The optic chiasm appears normal. Contrast images show no pathologic enhancement. There is normal enhancement of the venous sinuses. No evidence of retro-orbital mass. IMPRESSION: Normal MRI scan of the brain.
== END | disposition home or self-care (01) ==
LOC: RADMRIMAIN 21:15
PROVIDERS: ATTEND Family Medicine
DX: H53.419 Scotoma involving central area, unspecified eye (principal)
CPT/HCPCS: 70553; A9585

== ENCOUNTER 2022-03-02 09:51 | Day surgery (SDC) | payer BC ==
[2022-03-01 10:59] VITALS: BMI 27.4
[~2022-03-02 09:51] MED LIST: HYDROmorphone 0.5 MG/0.5 ML SYRINGE IVP PRN
[2022-03-02] MEDS ORDERED: SODIUM CHLORIDE 0.9% 1,000 ML IV ONE (10:02)
[2022-03-02 10:53] LABS: African American GFR (CKD) >90 (>60 ml/min/1.73 sqM); Anion Gap 10 mmol/L; Blood Urea Nitrogen 11 mg/dL (7-17); Calcium 9.6 mg/dL (8.4-10.2); Carbon Dioxide 28 mmol/L (22-30); Chloride 100 mmol/L (98-107); Glucose 96 mg/dL (74-99); Non-African American GFR(CKD) 83 (>60 ml/min/1.73 sqM); Potassium 3.8 mmol/L (3.5-5.1); Sodium 138 mmol/L (137-145)
[2022-03-02] MEDS ORDERED: PROPOFOL 10 MG/ML 20 ML VIAL IV ONE (12:08)
[2022-03-02] MEDS ORDERED: ISOPROTERENOL 250 MCG/1.25 ML SYR IV ONE (12:08)
[2022-03-02] MEDS ORDERED: MIDAZOLAM 2 MG/2 ML VIAL ONE (12:08)
[2022-03-02] MEDS ORDERED: fentaNYL (PF) 50 MCG/ML 2 ML AMP ONE (12:08)
[2022-03-02] MEDS ORDERED: LIDOCAINE 1% INJ 10MG/ML (30 ML VIAL-PF) SQ ONE (12:49)
--- NOTE | 2022-03-02 14:38 | P.HPCAR ---
History of Present Illness This is Dr. Damon dictating an H/P on this patient The patient was interviewed and examined IMPRESSION / ASSESSMENT: Recurrent palpitations associated with presyncope and visual changes Most recent episode for 10 minutes 2 days back with presyncope Event monitor shows runs of atrial tachycardia PLAN: Diagnostic EP study and possible radiofrequency ablation for inducible atrial tachycardia/SVT Intracardiac echo for mapping the interatrial septum and bubble study to evaluate for PFO/shunt at the atrial level HPI Patient continues to have recurrent episodes of palpitations associated with presyncope and visual changes Her most recent episode was 2 days back when she started experiencing palpitations and got very dizzy and felt the need to sit down and she also had visual changes at that time His symptoms resolved in about 10-15 minutes once a palpitations subsided ROS: No fever chills or rigors, no cough, phlegm or expectoration, no nausea, vomiting or diarrhea, no hematuria, dysuria, no musculoskeletal complaints, no strokes or seizures, no skin lesions. EXAMINATION: Afebrile 98.6F pulse rate in the 70s, blood pressure 137/78 mmHg Breath sounds are clear no rhonchi no crackles Heart sounds S1 and S2 are normal no murmurs or gallops Abdomen soft Extended is warm no edema REVIEW OF LABS, ECG & MEDICAL DATA Sodium 138, potassium 3.8, BUN 11 and creatinine 0.9 Beta-hCG not detected Physical Exam Vitals: Vital Signs Temp Pulse Resp BP Pulse Ox 03/02/22 10:14 98.6 F 78 16 137/78 100 Intake and Output 03/01/22 03/02/22 03/02/22 22:59 06:59 14:59 Intake Total 0 Balance 0 Intake: IV 0 Other: Weight 75.2 kg Past Medical History Past Medical History: No Reported History Additional Past Medical History / Comment(s): See Dr Haynes's H&P. Recently lost vision on two occasions, heart rate and BP were elevated, continues to have lisa episodes of tachycardia and palpitations. STILL HAVING VISUAL DISTURBANCES IN RIGHT EYE History of Any Multi-Drug Resistant Organisms: None Reported Past Surgical History: No Surgical Hx Reported Additional Past Surgical History / Comment(s): [place] teeth extracted. Past Anesthesia/Blood Transfusion Reactions: No Reported Reaction Smoking Status: Never smoker - Past Family History Father Family Medical History: No Reported History Physical Examination Vital Signs Temp Pulse Resp BP Pulse Ox 03/02/22 10:14 98.6 F 78 16 137/78 100 Intake and Output 03/01/22 03/02/22 03/02/22 22:59 06:59 14:59 Intake Total 0 Balance 0 Intake: IV 0 Other: Weight 75.2 kg Results 03/02/22 10:10 Comprehensive Metabolic Panel 03/02/22 Range/Units 10:10 Sodium 138 (137-145) mmol/L Potassium 3.8 (3.5-5.1) mmol/L Chloride 100 (98-107) mmol/L Carbon Dioxide 28 (22-30) mmol/L BUN 11 (7-17) mg/dL Creatinine 0.89 (0.52-1.04) mg/dL Glucose 96 (74-99) mg/dL Calcium 9.6 (8.4-10.2) mg/dL Current Medications Generic Name Dose Route Start Last Admin Trade Name Freq PRN Reason Stop Dose Admin Hydromorphone HCl 0.5 mg 03/02/22 07:00 Hydromorphone 0.5 Mg/0.5 Ml Syringe IVP 03/02/22 23:00 Q5M PRN Phase 1 or 2 - Pain Control Sodium Chloride 1,000 mls @ 20 mls/hr 03/02/22 06:02 Saline 0.9% IV 04/01/22 06:03 .Q24H JESSICA Lactated Ringer's 1,000 mls @ 20 mls/hr 03/02/22 06:02 Lactated Ringers IV 04/01/22 06:03 .Q24H JESSICA Intake and Output 03/01/22 03/02/22 03/02/22 22:59 06:59 14:59 Intake Total 0 Balance 0 Intake: IV 0 Other: Weight 75.2 kg Patient Weight 03/03/22 06:59 Weight 75.2 kg 03/02/22 10:10
--- NOTE | 2022-03-02 14:49 | P.EPPROC ---
- EP Procedure Note Electrophysiology Procedure Note: Diagnosis Recurrent palpitations with presyncope and visual changes Documented atrial tachycardia runs on event monitor Result Diagnostic EP study revealed normal baseline measurements with a normal AH of 90 ms and normal HV of 37 ms Antegrade slow pathway conduction with occasional echo beats but no sustained or nonsustained AV debbi reentry Inducible atrial fibrillation with straight pacing from the high right atrium, brief, nonsustained lasting less than 20-30 seconds Termination of this atrial fibrillation was associated with organization to an atrial tachycardia No sustained or nonsustained atrial tachycardia induced with or without Isuprel and pacing maneuvers, no inducible AV debbi reentry Intermittent right bundle branch block aberrancy with atrial pacing Plan In view of her recurrent episodes of palpitations associated with presyncope I would recommend suppressive antiarrhythmic drug therapy Start flecainide 50 mg twice daily along with metoprolol succinate 12.5 mg daily in a.m. Once she starts experiencing breakthrough episodes then event monitoring will be performed to look for the nature of the arrhythmia with a atrial tachycardia or atrial fibrillation Details Patient was brought to the EP lab in a fasting state. Written informed consent was obtained prior to the procedure. The right and left groins were prepped and draped as a protocol and venous sheaths were placed in the left femoral veins Via these diagnostic and mapping catheters were placed Catheters were placed in the high right atrium, coronary sinus, His bundle area and right ventricle Baseline measurements were normal and as follows Sinus cycle length 867 ms, MN interval 146 ms, QRS 82 ms and QT 405 ms AH 90 ms and HV 37 ms Sinus node recovery times at 600, 504 100 ms were 740, 1096 and 899 ms AV node Wenckebach block 290 ms VA Wenckebach block 340 ms Evidence of antegrade slow pathway conduction at 330 ms No evidence for accessory pathway conduction antegradely Parahisian pacing revealed a debbi response With straight pacing from the high right atrium, atrial fibrillation was induced This lasted for less than 20-30 seconds Prior to termination it organized into an atrial tachycardia and then terminated It could not be reinduced again With atrial pacing right bundle aberrancy was noted Atrial extra stimulation was performed AV node ERP was 600\270 ms Atrial extra stimulation was performed after triple extra stimuli from the high right atrium and from the coronary sinus Burst stimulation was performed from both sites This was repeated on Isuprel Ventricular extra stimulation was also performed Occasional single echo beats were noted of Isuprel There was a brief run of slow atrial tachycardia during Isuprel infusion, but this was a fleeting run that could never be reproduced again. It was brief Isuprel was turned off and a full EP study is performed once again No arrhythmias induced No AV debbi reentry No sustained atrial tachycardia Debbi response to Parahisian pacing No evidence for accessory pathway conduction
--- NOTE | 2022-03-02 14:53 | P.PRLE ---
RE: Leydi Bobby Dear Mary Leydi has been experiencing Recurrent palpitations with presyncope and visual changes You have documented atrial tachycardia runs on event monitor She underwent a diagnostic EP study Result Diagnostic EP study revealed normal baseline measurements with a normal AH of 90 ms and normal HV of 37 ms Antegrade slow pathway conduction with occasional echo beats but no sustained or nonsustained AV christelle reentry Inducible atrial fibrillation with straight pacing from the high right atrium, brief, nonsustained lasting less than 20-30 seconds Termination of this atrial fibrillation was associated with organization to an atrial tachycardia No sustained or nonsustained atrial tachycardia induced with or without Isuprel and pacing maneuvers Intermittent right bundle branch block aberrancy with atrial pacing She also underwent intracardiac echocardiography There was no evidence for [id number] inter-atrial shunting Plan In view of her recurrent episodes of palpitations associated with presyncope I would recommend suppressive antiarrhythmic drug therapy Start flecainide 50 mg twice daily along with metoprolol succinate 12.5 mg daily in a.m. Once she starts experiencing breakthrough episodes then event monitoring will be performed to look for the nature of the arrhythmia with a atrial tachycardia or atrial fibrillation Thank you for entrusting me with the care of the patient Warm regards Sincerely Mj Damon
[2022-03-02] MEDS: LACTATED RINGERS 1,000 ML IV SCH (15:21)
[2022-03-02] MEDS: SODIUM CHLORIDE 0.9% 1,000 ML IV SCH (15:22)
[2022-03-02] MEDS ORDERED: SODIUM CHLORIDE 0.9% 500 ML 500 ML IV ONE (18:31)
[2022-03-03] MEDS: SODIUM CHLORIDE 0.9% 1,000 ML IV SCH (05:07)
[2022-03-03] MEDS: LACTATED RINGERS 1,000 ML IV SCH (05:07)
[2022-03-03] MEDS ORDERED: FLECAINIDE 50 MG TAB PO STA (07:18)
[2022-03-03 08:26] VITALS: BP 126/73; PULSE 84; RESP 14; TEMP 98.2
--- NOTE | 2022-03-03 11:19 | P.DS ---
Providers Attending physician: Mj Damon Primary care physician: [facility] Course: Patient was scheduled for a discharged yesterday but after she got up and walked around in the room she was very dizzy and lightheaded Subsequently I gave IV fluids of 100 mL bolus and then 100 mL an hour but even at around 9:00 in the evening she was quite dizzy and lightheaded upon walking around the room Therefore discharge was withheld and she was monitored overnight She has not had any arrhythmias overnight This morning she looks well she does not complain of any dizziness or lightheadedness she feels well On examination breath sounds are normal no rhonchi no crackles Normal heart sounds no murmurs or gallops Groins are mildly tender but there is no swelling no hematoma Impression Recurrent palpitations with documented short episodes of atrial tachycardia on the event monitor associated with presyncope and visual changes Intracardiac echo did not reveal any right to left shunting and the bubble study Diagnostic EP study did not induce any atrial tachycardia However in a mildly sedated state atrial fibrillation, was induced which lasted for about 20-30 seconds, organized into an atrial tachycardia in the terminated This was not a reproducible finding She does have evidence for antegrade slow pathway conduction with occasional echo beats but no inducible AV christelle reentry Plan Since she has very symptomatic runs of SVT/atrial tachycardia I'm starting her on flecainide 50 g twice daily She may start with 25 mg twice daily and work up with up because she is been intolerant of medications in general She is also quite intolerant of beta blockers and therefore I'm switching her to verapamil 40 mg twice daily Once again she may start with half a tablet twice a day of verapamil first and then work her way up Once she starts having breakthrough episodes of documented atrial fibrillation or atrial tachycardia ablation for atrial tachycardia and atrial fibrillation will be considered Consideration for implantation of a loop monitor in the future Plan - Discharge Summary Discharge Rx Participant: Yes New Discharge Prescriptions: New RX: Flecainide [Tambocor] 50 mg PO Q12HR #180 tablet RX: Verapamil [Isoptin] 40 mg PO BID #180 tablet Discontinued Metoprolol Tartrate [Lopressor] 12.5 mg PO QAM Discharge Medication List RX: Flecainide [Tambocor] 50 mg PO Q12HR #180 tablet 03/02/22 [Rx] RX: Verapamil [Isoptin] 40 mg PO BID #180 tablet 03/03/22 [Rx] Follow up Appointment(s)/Referral(s): He Haynes MD [STAFF PHYSICIAN] - 03/12/22 1:30 pm Patient Instructions/Handouts: Metoprolol (By mouth), Flecainide (By mouth), Electrophysiology Study (DC) Discharge Disposition: HOME SELF-CARE
== END 2022-03-03 11:29 | disposition home or self-care (01) ==
LOC: CATHEP 09:51 → 6NMEDSUR 14:34 → CATHEP 03-03 11:29
PROVIDERS: ATTEND Internal Medicine Clinical Cardiac Electrophysiology
DX: I47.1 Supraventricular tachycardia (principal); I73.9 Peripheral vascular disease, unspecified; Z82.49 Family history of ischemic heart disease and other diseases of the circulatory system; H53.9 Unspecified visual disturbance; Z79.899 Other long term (current) drug therapy; Z88.5 Allergy status to narcotic agent; Z88.0 Allergy status to penicillin; Z88.2 Allergy status to sulfonamides; I48.91 Unspecified atrial fibrillation; I45.10 Unspecified right bundle-branch block
CPT/HCPCS: 93623; 93620; 80048; 81025; C1759; C1894; C1769 ×2; C1760; C1730 ×3; J2250; J2001; J3010; J2704

== ENCOUNTER → 2022-09-15 | Outpatient (CLI) | payer BC ==
[2022-09-15 15:27] LABS: Basophils # (A) 0.02 X 10*3/uL (0.00-0.10); Basophils % (A) 0.3 %; Eosinophils # (A) 0.07 X 10*3/uL (0.04-0.35); Eosinophils % (A) 1.1 %; HCT 43.1 % (37.2-46.3); HGB 14.3 g/dL (12.0-15.0); Immature Grans, Automated 0.3 %; Lymphocytes # (A) 1.82 X 10*3/uL (0.90-5.00); Lymphocytes % (A) 28.7 %; MCH 30.5 pg (27.0-32.0); MCHC 33.2 g/dL (32.0-37.0); MCV 91.9 fL (80.0-97.0); Mean Platelet Volume 10.7 fL (9.5-12.2); Monocytes # (A) 0.44 X 10*3/uL (0.20-1.00); Monocytes % (A) 6.9 %; NRBC Per 100 WBC 0 /100 WBCS (0.0-0.0); Neutrophils # (A) 3.98 X 10*3/uL (1.80-7.70); Neutrophils % (A) 62.7 %; Platelet Count 250 X 10*3/uL (140-440); RBC 4.69 X 10*6/uL (4.10-5.20); RDW 12.3 % (11.5-14.5); WBC 6.35 X 10*3/uL (4.50-10.00)
== END | disposition home or self-care (01) ==
LOC: LABPAT 08:33
PROVIDERS: ATTEND Obstetrics & Gynecology
DX: Z01.812 Encounter for preprocedural laboratory examination (principal)
CPT/HCPCS: 85025

== ENCOUNTER 2022-09-17 06:49 | Day surgery (SDC) | payer BC ==
[2022-09-14 17:10] VITALS: BMI 26.3
--- NOTE | 2022-09-16 17:02 | P.HPOB ---
History of Present Illness H&P Date: 09/16/22 Chief Complaint: menorrhagia 37 year old female presents for D&C hysteroscopy and endometrial ablation with NovaSure. Review of Systems All systems: negative Constitutional: Denies chills, Denies fever Eyes: denies blurred vision, denies pain Ears, nose, mouth and throat: Denies headache, Denies sore throat Cardiovascular: Denies chest pain, Denies shortness of breath Respiratory: Denies cough Gastrointestinal: Denies abdominal pain, Denies diarrhea, Denies nausea, Denies vomiting Genitourinary: Denies dysuria, Denies hematuria Musculoskeletal: Denies myalgias Integumentary: Denies pruritus, Denies rash Neurological: Denies numbness, Denies weakness Psychiatric: Denies anxiety, Denies depression Endocrine: Denies fatigue, Denies weight change Past Medical History Past Medical History: No Reported History Additional Past Medical History / Comment(s): ATRIAL TACHYCARDIA History of Any Multi-Drug Resistant Organisms: None Reported Past Surgical History: No Surgical Hx Reported Additional Past Surgical History / Comment(s): EP STUDY-NO ABLATION Past Anesthesia/Blood Transfusion Reactions: No Reported Reaction Additional Past Anesthesia/Blood Transfusion Reaction / Comment(s): HAS HAD MINIMAL ANESTH Past Psychological History: No Psychological Hx Reported Smoking Status: Never smoker Past Alcohol Use History: Occasional Past Drug Use History: None Reported - Past Family History Father Family Medical History: No Reported History Medications and Allergies Home Medications Medication Instructions Recorded Confirmed Type Dronedarone [Multaq] 400 mg PO DAILY 09/14/22 09/14/22 History Allergies Allergy/AdvReac Type Severity Reaction Status Date / Time morphine Allergy Itching Verified 09/14/22 17:01 Penicillins Allergy Rash/Hives Verified 09/14/22 17:01 Sulfa (Sulfonamide Allergy Anaphylaxis Verified 09/14/22 17:01 Antibiotics) promethazine HCl AdvReac Unknown Verified 09/14/22 17:01 [From Phenergan] Exam Osteopathic Statement: *. No significant issues noted on an osteopathic structural exam other than those noted in the History and Physical/Consult. HEart: RRR Lungs: CTAB Abdomen: soft, nontender Extremeties: neg mickey's Assessment and Plan (1) Menorrhagia Status: Acute Code(s): N92.0 - EXCESSIVE AND FREQUENT MENSTRUATION WITH REGULAR CYCLE SNOMED Code(s): 929614803 Plan: 1. D&C hysteroscopy and endometrial ablation with NovaSure
[~2022-09-17 06:49] MED LIST changes: +DEXAMETHASONE SOD PHOSPHATE 4 MG/ML 1 ML VIAL IV ONE; -HYDROmorphone 0.5 MG/0.5 ML SYRINGE IVP PRN; +LACTATED RINGERS 1,000 ML IV SCH; +MIDAZOLAM 2 MG/2 ML VIAL IV PRN; +ONDANSETRON 4 MG/2 ML VIAL IVP ONE; +Pre Op ABX Message 1 EACH MISC MISCELLANE ONE; +SCOPOLAMINE 1 MG/72 HR PATCH TRANSDERM ONE
[2022-09-17] MEDS ORDERED: fentaNYL (PF) 50 MCG/ML 2 ML AMP IV PRN (07:00)
[2022-09-17] MEDS ORDERED: LIDOCAINE 1% (10MG/ML) FOR IV START INTRADERMA ONE (07:25)
[2022-09-17] MEDS ORDERED: PROPOFOL 10 MG/ML 20 ML VIAL IV ONE (07:54)
[2022-09-17] MEDS ORDERED: LIDOCAINE 2% INJ 20 MG/ML (2 ML VIAL) ONE (07:54)
[2022-09-17] MEDS ORDERED: KETOROLAC 15 MG/ML 1 ML VIAL ONE (07:54)
[2022-09-17] MEDS ORDERED: fentaNYL (PF) 50 MCG/ML 2 ML AMP ONE (07:54)
--- NOTE | 2022-09-17 08:29 | P.OP ---
Date of Procedure: 09/17/22 Preoperative Diagnosis: 1. menorrhagia Postoperative Diagnosis: 1. menorrhagia Procedure(s) Performed: D&C, hysteroscopy, endometrial ablation with NovaSure Anesthesia: ESTEFANY Surgeon: Olive Jara Estimated Blood Loss (ml): 5 IV fluids (ml): 200 Urine output (ml): 15 Pathology: other (Endometrial curettings) Condition: stable Disposition: PACU Operative Findings: Uterus sounded to 8 cm. Cavity length 6 cm, width 4.4 cm, power 145 W, time of ablation 36 seconds. Adequate ablation after NovaSure. Description of Procedure: Patient is taken the operating room where general anesthesia was obtained without difficulty. She was prepped and draped in normal sterile fashion dorsal lithotomy position, legs placed in the candRexly cane stirrups. Bladder was drained of all urine. Weighted speculum placed in the vagina and the anterior lip the cervix was grasped with serial tooth tenaculum. The uterus sounded to 8 cm and the cervix under 2 cm making the cavity length 6 cm. The cervix was dilated to #8 Hegar dilator. Hysteroscopy was then performed. Both ostia were visualized and there was a smooth contour of the uterus. Sharp curet was then gently used to obtain endometrial curettings. The NovaSure was introduced into the uterus with a cavity length of 6 cm, width 4.4 cm. after cavity assessment was passed, the time of ablation was 36 seconds at 145 W. Hysteroscopy was again performed and adequate ablation was noted. All instruments removed from the vagina. Patient tolerated the procedure well, sponge and instrument counts were correct 2 and she was taken to recovery in stable condition.
[2022-09-17 08:39] VITALS: TEMP 97
[2022-09-17 08:48] VITALS: RESP 16
[2022-09-17] MEDS ORDERED: ACETAMINOPHEN TAB 500 MG TAB ONE (09:38)
[2022-09-17] MEDS ORDERED: ACETAMINOPHEN TAB 500 MG TAB PO ONE (09:40)
[2022-09-17 09:59] VITALS: BP 125/80; PULSE 57
== END 2022-09-17 10:19 | disposition home or self-care (01) ==
LOC: OR 06:49
PROVIDERS: ATTEND Obstetrics & Gynecology
DX: N92.0 Excessive and frequent menstruation with regular cycle (principal); I47.1 Supraventricular tachycardia; F10.90 Alcohol use, unspecified, uncomplicated; Z79.899 Other long term (current) drug therapy; Z88.5 Allergy status to narcotic agent; Z88.0 Allergy status to penicillin; Z88.2 Allergy status to sulfonamides; Z88.8 Allergy status to other drugs, medicaments and biological substances
CPT/HCPCS: 81025; 88305; 58563; J1100; J2405; J3010; J1885; J2704; J2001

== ENCOUNTER → 2024-09-20 | Outpatient (CLI) | payer BC ==
--- NOTE | 2024-09-20 10:26 | MM ---
Reason for Exam: Screening (asymptomatic). Last mammogram was performed 2 year(s) and 0 month(s) ago. Patient History: Menarche at age 11. First Full-Term at age 28. Premenopausal. Currently using Hormonal Contraceptives, starting at age 15. Maternal cousin had breast cancer, age 27. Maternal aunt had breast cancer, age 45. Last menstrual period: 09/15/2024 Risk Values: Alona 5 year model risk: 0.6%. NCI Lifetime model risk: 11.1%. Prior Study Comparison: 07/14/2020 Bilateral Screening Mammogram, [facility]. 09/28/2022 Bilateral MG 3D diag mammo w/cad [facility], [facility]. Tissue Density: The breasts are heterogeneously dense, which may obscure small masses. Findings: Analyzed By CAD. There are few benign-appearing round calcifications redemonstrated scattered throughout the bilateral breasts. More numerous diffuse calcifications in the left breast are present. There is no suspicious new group of microcalcifications or new suspicious mass in either breast. Overall Assessment: Benign, BI-RAD 2 Management: Screening Mammogram of both breasts in 1 year. Some advise annual bilateral breast ultrasound surveillance in patient with background dense tissue. Patient should continue monthly self-breast exams. A clinical breast exam by your physician is recommended on an annual basis. This exam should not preclude additional follow-up of suspicious palpable abnormalities. Note on Alona scores and lifetime risk: 1. A Alona score greater than 3% is considered moderate risk. If this is the case, consider specialist referral to assess eligibility for a risk reducing agent. 2. If overall lifetime risk for the development of breast cancer is 20% or higher, the patient may qualify for future screening with alternating mammogram and breast MRI. [facility], , 09/20/2024 10:22 AM. Electronically signed and approved by: Alek Irvin M.D.
== END | disposition home or self-care (01) ==
LOC: RADMAMWWP 08:41
PROVIDERS: ATTEND Family Medicine
DX: Z12.31 Encounter for screening mammogram for malignant neoplasm of breast (principal); R92.333 Mammographic heterogeneous density, bilateral breasts; Z80.3 Family history of malignant neoplasm of breast; Z92.0 Personal history of contraception
CPT/HCPCS: 77063; 77067

== ENCOUNTER 2024-11-15 10:48 | Emergency (ER) | payer BC ==
[2024-11-15 11:03] VITALS: BP 145/94; PULSE 70; RESP 16
--- NOTE | 2024-11-15 11:11 | ED ---
Chest Pain HPI - General Chief Complaint: Chest Pain Stated Complaint: Jaw/back pain,SOB Time Seen by Provider: 11/15/24 11:00 Source: patient, RN notes reviewed Mode of arrival: ambulatory Limitations: no limitations - History of Present Illness Initial Comments: 39-year-old female presents emergency department complaints of left-sided chest pain. Patient states that started while she was at home folding laundry. Patient states that prior to this she did have some left-sided jaw discomfort. Patient states that there is severe left-sided chest pain that is worse with movement, deep inspiration does cause her to feel short of breath. She has no prior cardiac history besides SVT denies any nausea vomiting fevers or chills. Patient has no history of hypertension hyperlipidemia diabetes. - Related Data Home Medications Medication Instructions Recorded Confirmed Dronedarone [Multaq] 400 mg PO DAILY 09/14/22 09/14/22 Previous Rx's Medication Instructions Recorded Ketorolac [Toradol] 10 mg PO Q8HR #15 tab 11/15/24 Orphenadrine [Norflex] 100 mg PO Q12H #14 tab 11/15/24 Allergies Allergy/AdvReac Type Severity Reaction Status Date / Time morphine Allergy Itching Verified 09/17/22 07:10 Penicillins Allergy Rash/Hives Verified 09/17/22 07:10 Sulfa (Sulfonamide Allergy Anaphylaxis Verified 09/17/22 07:10 Antibiotics) promethazine HCl AdvReac Unknown Verified 09/17/22 07:10 [From Phenergan] Review of Systems ROS Statement: Those systems with pertinent positive or pertinent negative responses have been documented in the HPI. ROS Other: All systems not noted in ROS Statement are negative. Past Medical History Past Medical History: No Reported History Additional Past Medical History / Comment(s): ATRIAL TACHYCARDIA History of Any Multi-Drug Resistant Organisms: None Reported Past Surgical History: No Surgical Hx Reported Additional Past Surgical History / Comment(s): EP STUDY-NO ABLATION Past Anesthesia/Blood Transfusion Reactions: No Reported Reaction Additional Past Anesthesia/Blood Transfusion Reaction / Comment(s): HAS HAD MINIMAL ANESTH Past Psychological History: No Psychological Hx Reported Smoking Status: Never smoker Past Alcohol Use History: Occasional Past Drug Use History: None Reported - Past Family History Father Family Medical History: No Reported History General Exam Limitations: no limitations General appearance: alert, in no apparent distress Head exam: Present: atraumatic, normocephalic, normal inspection Eye exam: Present: normal appearance, PERRL, EOMI. Absent: scleral icterus, conjunctival injection, periorbital swelling ENT exam: Present: normal oropharynx Neck exam: Present: normal inspection. Absent: tenderness, meningismus, lymphadenopathy Respiratory exam: Present: normal lung sounds bilaterally, chest wall tenderness. Absent: respiratory distress, wheezes, rales, rhonchi, stridor Cardiovascular Exam: Present: regular rate, normal rhythm, normal heart sounds. Absent: systolic murmur, diastolic murmur, rubs, gallop, clicks Course Vital Signs 11/15/24 11:01 Pulse Rate 70 Respiratory 16 Rate Blood Pressure 145/94 O2 Sat by Pulse 100 Oximetry Chest Pain MDM - MDM Was pt. sent in by a medical professional or institution (, PA, MANAGER QA, urgent care, hospital, or fci...) When possible be specific @ -No Did you speak to anyone other than the patient for history (EMS, parent, family, police, friend...)? What history was obtained from this source @ -No Did you review nursing and triage notes (agree or disagree)? Why? @ -I reviewed and agree with nursing and triage notes Were old charts reviewed (outside hosp., previous admission, EMS record, old EKG, old radiological studies, urgent care reports/EKG's, fci records)? Report findings @ -No old charts were reviewed Differential Diagnosis (chest pain, altered mental status, abdominal pain women, abdominal pain men, vaginal bleeding, weakness, fever, dyspnea, syncope, headache, dizziness, GI bleed, back pain, seizure, CVA, palpatations, mental health, musculoskeletal)? @ -Differential Chest Pain: Stable Angina, Unstable Angina, STEMI, NSTEMI Aortic Dissection, Pneumothorax, Musculoskeletal, Esophageal Spasm GERD, Cholecystitis, Pancreatitis, Zoster, this is not meant to be an all-inclusive list. EKG interpreted by me (3pts min.). @ -As above X-rays interpreted by me (1pt min.). @ -Chest x-ray shows no acute cardiopulmonary process. CT interpreted by me (1pt min.). @ -None done U/S interpreted by me (1pt. min.). @ -None done What testing was considered but not performed or refused? (CT, X-rays, U/S, labs)? Why? @ -None What meds were considered but not given or refused? Why? @ -None Did you discuss the management of the patient with other professionals (professionals i.e. , PA, MANAGER QA, lab, RT, psych nurse, geriatric social work professor, appointment coordinator, teacher, returning officer, caser shoe parts)? Give summary @ -No Was smoking cessation discussed for >3mins.? @ -No Was critical care preformed (if so, how long)? @ -No Were there social determinants of health that impacted care today? How? (Homelessness, low income, unemployed, alcoholism, drug addiction, transportation, low edu. Level, literacy, decrease access to med. care, long-term, rehab)? @ -No Was there de-escalation of care discussed even if they declined (Discuss DNR or withdrawal of care, Hospice)? DNR status @ -No What co-morbidities impacted this encounter? (DM, HTN, Smoking, COPD, CAD, Cancer, CVA, ARF, Chemo, Hep., AIDS, mental health diagnosis, sleep apnea, morbid obesity)? @ -None Was patient admitted / discharged? Hospital course, mention meds given and route, prescriptions, significant lab abnormalities, going to OR and other pertinent info. @ -Discharge laboratory studies are unremarkable. Patient has worsening pain with movement, pain with palpation to the left side of the ribs. This does reproduce most of the pain. Patient was offered admission patient declines patient feels comfortable discharge with anti-inflammatories as she had improvement. Undiagnosed new problem with uncertain prognosis? @ -No Drug Therapy requiring intensive monitoring for toxicity (Heparin, Nitro, Insulin, Cardizem)? @ -No Were any procedures done? @ -No Diagnosis/symptom? @ -Chest wall pain Acute, or Chronic, or Acute on Chronic? @ -Acute Uncomplicated (without systemic symptoms) or Complicated (systemic symptoms)? @ -complicated Side effects of treatment? @ -No Exacerbation, Progression, or Severe Exacerbation? @ -No Poses a threat to life or bodily function? How? (Chest pain, [place], [place], pneumonia, PE, COPD, DKA, ARF, appy, cholecystitis, CVA, Diverticulitis, Homicidal, Suicidal, threat to staff... and all critical care pts) @ -No Disposition Clinical Impression: Chest wall pain Disposition: HOME SELF-CARE Condition: Stable Instructions (If sedation given, give patient instructions): Chest Pain (ED) Additional Instructions: Please return to the Emergency Department if symptoms worsen or any other concerns. Prescriptions: Orphenadrine [Norflex] 100 mg PO Q12H #14 tab Ketorolac [Toradol] 10 mg PO Q8HR #15 tab Is patient prescribed a controlled substance at d/c from ED?: No Referrals: Mary Irwin MD [Primary Care Provider] - 1-2 days Time of Disposition: 14:06
[2024-11-15 11:37] LABS: Basophils # (A) 0.04 10*3/uL (0.00-0.10); Basophils % (A) 0.6 %; Eosinophils # (A) 0.08 10*3/uL (0.04-0.35); Eosinophils % (A) 1.3 %; HCT 44.9 % (37.2-46.3); HGB 15.8 g/dL (12.0-15.0); Lymphocytes # (A) 2.16 10*3/uL (0.90-5.00); Lymphocytes % (A) 34.8 %; MCH 31.3 pg (27.0-32.0); MCHC 35.2 g/dL (32.0-37.0); MCV 88.9 fL (80.0-97.0); Mean Platelet Volume 9.6 fL (9.5-12.2); Monocytes # (A) 0.33 10*3/uL (0.20-1.00); Monocytes % (A) 5.3 %; Neutrophils # (A) 3.56 10*3/uL (1.80-7.70); Neutrophils % (A) 57.5 %; Platelet Count 297 10*3/uL (140-440); RBC 5.05 10*6/uL (4.10-5.20); RDW 11.8 % (11.5-14.5)
--- NOTE | 2024-11-15 11:37 | XR ---
EXAMINATION TYPE: XR chest 2V DATE OF EXAM: 11/15/2024 11:30 AM COMPARISON: 08/16/2019 CLINICAL INDICATION: Female, 39 years old with history of chest pain, TECHNIQUE: XR chest 2V view(s) obtained. FINDINGS: The heart size is normal. The pulmonary vasculature is normal. The lungs are clear. IMPRESSION: 1. No acute pulmonary process. [facility], , 11/15/2024 11:35 AM
[2024-11-15] MEDS: KETOROLAC 15 MG/ML 1 ML VIAL IVP STA ×2 (11:46→14:58)
[2024-11-15 12:01] LABS: INR 0.9 (<1.2); Partial Thromboplastin Time 26.2 sec (22.0-30.0); Prothrombin Time 10.4 sec (10.0-12.5)
[2024-11-15 12:20] LABS: ALT 15 U/L (4-34); AST 24 U/L (14-36); African American GFR (CKD) >90 (>60 ml/min/1.73 sqM); Alkaline Phosphatase 101 U/L (38-126); Anion Gap 13 mmol/L; Blood Urea Nitrogen 14 mg/dL (7-17); Calcium 9.9 mg/dL (8.4-10.2); Carbon Dioxide 22 mmol/L (22-30); Chloride 105 mmol/L (98-107); Glucose 107 mg/dL (74-99); Non-African American GFR(CKD) 89 (>60 ml/min/1.73 sqM); Potassium 3.9 mmol/L (3.5-5.1); Sodium 140 mmol/L (137-145); Total Protein 8.2 g/dL (6.3-8.2)
[2024-11-15] MEDS: ORPHENADRINE 30 MG/ML 2 ML VIAL IVP STA (14:58)
== END 2024-11-15 15:08 | disposition home or self-care (01) ==
LOC: EC 10:48
DX: R07.89 Other chest pain (principal); Z88.0 Allergy status to penicillin; Z88.2 Allergy status to sulfonamides
CPT/HCPCS: 36415; 93005; 85379; 80053; 83735; 84484; 85025; 85610; 85730; 71046; 99285; 96374; 96375; 96376; J2360; J1885